=== PATIENT | male | born 1990 | race Caucasian/White ===

== ENCOUNTER → 2024-12-27 09:39 | Outpatient (CLI) | payer OTHER, SELFPAY ==
--- NOTE | 2024-12-27 | DI.MRI.S_ITS ---
PROCEDURE: MR LUMBAR SPINE WO CON INDICATIONS: LOWER BACK/LUMBAR SPINE PAIN/RT LEG WEAKNESS/NUMB TECHNIQUE: Noncontrast sagittal T1 spin echo and T2 fast echo, sagittal STIR, and T2 fast spin echo through the lumbar spine. In cases with scoliosis, additional coronal T2 fast spin echo may be performed. COMPARISON: None. FINDINGS: Image quality: Excellent. Alignment and Curvature: There is normal bony alignment. Bone Marrow: Marrow is of normal overall signal. No acute vertebral body compression fractures. Spinal Cord: Conus medullaris terminates at the L1 level. Visualized cord demonstrates normal signal and size. Paraspinous Soft Tissues: No paravertebral masses. T12-L1: Normal appearance. L1-L2: Normal appearance. L2-L3: Normal appearance. L3-L4: Disc bulge. Facet hypertrophy. Epidural lipomatosis. Mild canal stenosis. No foraminal stenosis. L4-L5: Disc bulge. Facet hypertrophy. Epidural lipomatosis. Mild canal stenosis. Mild bilateral foraminal stenosis. L5-S1: There is annulus tear associated with moderate somewhat broad-based right paracentral disc protrusion. There is associated increased signal suggesting acuity. The right S1 nerve root is obliterated in the right lateral recess. The right S2 nerve root is impinged. There is facet hypertrophy. No foraminal stenosis. IMPRESSION: 1. The significant level is L5-S1. There is annulus tear plus somewhat broad-based relatively acute right paracentral disc protrusion, obliterating the right S1 nerve root and impinging on the right S2 nerve root. 2. Mild canal stenosis at L3-L4 and L4-L5. 3. Lower lumbar facet arthropathy. Dictated by: Jeremy Shepherd M.D. on 12/27/2024 at 11:16 Approved by: Jeremy Shepherd M.D. on 12/27/2024 at 11:20
== END ==
PROVIDERS: Family Provider Nurse Practitioner; Referring Provider Chiropractor; Visit Provider Chiropractor
DX: M51.16 Intervertebral disc disorders with radiculopathy, lumbar region (principal); M47.26 Other spondylosis with radiculopathy, lumbar region; M51.17 Intervertebral disc disorders with radiculopathy, lumbosacral region; M47.27 Other spondylosis with radiculopathy, lumbosacral region; M54.51 Vertebrogenic low back pain; M99.13 Subluxation complex (vertebral) of lumbar region; M48.061 Spinal stenosis, lumbar region without neurogenic claudication
CPT/HCPCS: 72148